=== PATIENT | female | born 1960 | race Caucasian/White ===

== ENCOUNTER 2017-06-06 08:07 | Emergency (ER) | payer OTHER ==
[2017-06-06 08:19] VITALS: BP 137/63; PULSE 100; TEMP 98.5; BMI 33.3
--- NOTE | 2017-06-06 09:17 | PDOC ---
History of Present Illness - General Chief Complaint: Cold Symptoms Stated Complaint: HEADACHE Time Seen by Provider: 06/06/17 08:58 History Source: Patient Exam Limitations: No Limitations - History of Present Illness Initial Comments: 06/06/17 09:13 Patient is here with complaints of fevers, headache body aches sore throat pain moist nonproductive cough. Patient states onset was 2 days ago has been using Tylenol with minimal resolved. Timing/Duration: reports: getting worse Severity: reports: mild, moderate Associated Symptoms: reports: cough, facial pain, fever/chills, headache, nasal congestion, sore throat, wheezing Past History - Travel Traveled outside of the country in the last 30 days: No Close contact w/someone who was outside of country & ill: No - Past Medical History Allergies/Adverse Reactions: Allergies Allergy/AdvReac Type Severity Reaction Status Date / Time No Known Allergies Allergy Verified 06/06/17 08:14 Home Medications: Ambulatory Orders Ibuprofen 400 mg PO Q6H PRN #30 tablet 06/06/17 Oseltamivir Phosphate [Tamiflu -] 75 mg PO BID #10 capsule 06/06/17 COPD: No Thyroid Disease: Yes - Suicide/Smoking/Psychosocial Hx Smoking History: Never smoked Have you smoked in the past 12 months: No Information on smoking cessation initiated: No Hx Alcohol Use: No Drug/Substance Use Hx: No Substance Use Type: None Review of Systems - Review of Systems Able to Perform ROS?: Yes Is the patient limited Kazakh proficient: Yes Constitutional: Yes: Symptoms Reported, See HPI, Chills, Fever, Loss of Appetite , Malaise HEENTM: Yes: Symptoms Reported, Nose Congestion, Throat Pain Respiratory: Yes: Symptoms reported, See HPI, Cough. No: Wheezing Musculoskeletal: Yes: Symptoms Reported Integumentary: Yes: Symptoms Reported, See HPI Neurological: Yes: Symptoms reported, See HPI, Headache All Other Systems: Reviewed and Negative *Physical Exam - Vital Signs Last Vital Signs Temp Pulse Resp BP Pulse Ox 98.5 F 100 H 18 137/63 100 06/06/17 08:15 06/06/17 08:15 06/06/17 08:15 06/06/17 08:15 06/06/17 08:15 - Physical Exam General Appearance: Yes: Nourished, Appropriately Dressed, Apparent Distress, Moderate Distress HEENT: positive: TMs Normal (congested but landmarks easily visualized), Tonsillar Exudate, Rhinorrhea, Sinus Tenderness Neck: positive: Tender, Supple, Lymphadenopathy (R), Lymphadenopathy (L) Respiratory/Chest: positive: Lungs Clear (course but clear) Cardiovascular: positive: Regular Rate Musculoskeletal: positive: Normal Inspection Extremity: positive: Normal Capillary Refill, Normal Inspection Integumentary: positive: Dry, Warm, Pale 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 We'll treat with Tamiflu *DC/Admit/Observation/Transfer Diagnosis at time of Disposition: Upper respiratory tract infection Qualifiers: URI type: unspecified URI Qualified Code(s): J06.9 - Acute upper respiratory infection, unspecified - Discharge Dispostion Disposition: HOME Condition at time of disposition: Stable Admit: No - Referrals Referrals: Holly Fiore [Primary Care Provider] - - Patient Instructions Printed Discharge Instructions: DI for Viral Upper Respiratory Infection -- Adult Additional Instructions: Rest, drink lots of fluids: Teas, water, soups, Pedialyte Saltwater gargles Steamy showers/seem to face break up mucus Old-fashioned treatments help! Avoid contact with others until fevers and cough resolved as this is very contagious Lots of handwashing and good hygiene Continue [id number] medications for symptomatic relief Tylenol or Motrin for fever and pain Take all of Tamiflu as directed: 1 tab every 12 hours for 5 days Followup with private physician in one to 2 days as needed or if worsening Return to emergency department for worsened symptoms, fevers, dehydration Influenza takes between 5 and 7 days for resolution To not participate in any activity, work, or school until fevers and cough are gone for at least one day - Post Discharge Activity Forms/Work/School Notes: Back to Work
== END 2017-06-06 09:26 | disposition home or self-care (01) ==
LOC: JERFT 08:07
DX: J06.9 Acute upper respiratory infection, unspecified (principal)
CPT/HCPCS: 99281-25

== ENCOUNTER 2018-10-11 08:01 | Day surgery (SDC) | payer OTHER ==
[2018-10-10 14:52] VITALS: BMI 36.8
[2018-10-11 09:47] VITALS: TEMP 97.9
[2018-10-11 10:35] VITALS: BP 164/79; PULSE 76
--- NOTE | 2018-10-12 16:44 | PATH ---
Surgical Pathology Report Patient Name: APOORVA MALCOLM [facility]. Rec. #: [id number] /Age/Gender: 1960 (Age: 57) / F Account: [id number] Location: [facility]-ENDOSCOPY Taken: 10/11/2018 Received: 10/11/2018 Reported: 10/12/2018 Physicians: Mina Rinaldi D.O. Specimen(s) Received PROXIMAL TRANSVERSE COLON POLYP BX Clinical History Chronic constipation, screening Postoperative diagnosis: Colon polyp, hemorrhoids Final Diagnosis PROXIMAL TRANSVERSE COLON, POLYP, BIOPSY: TUBULAR ADENOMA. Electronically Signed Adalgisa Singh M.D. Gross Description Received in formalin, labeled "proximal transverse colon polyp biopsy" are 2 marcus, irregular portions of soft tissue measuring 0.2 and 0.4 cm. in greatest dimension. The specimens are submitted in toto in one cassette. /10/11/201810/11/2018
== END 2018-10-11 10:35 | disposition home or self-care (01) ==
LOC: JASU-ENDO 08:01
PROVIDERS: ATTEND Internal Medicine Gastroenterology
PROC: 0DBL8ZX Excision of Transverse Colon, Via Natural or Artificial Opening Endoscopic, Diagnostic (ICD-10-PCS; principal; 2018-10-11 09:00)
DX: Z12.11 Encounter for screening for malignant neoplasm of colon (principal); K64.8 Other hemorrhoids; D12.3 Benign neoplasm of transverse colon; I10 Essential (primary) hypertension
CPT/HCPCS: 88305-TC

== ENCOUNTER 2018-10-30 09:02 | Day surgery (SDC) | payer OTHER ==
[2018-10-29 15:11] VITALS: BMI 37.2
[2018-10-30 10:07] VITALS: TEMP 97.8
[2018-10-30 10:46] VITALS: BP 144/76; PULSE 74
--- NOTE | 2018-10-31 18:09 | PATH ---
Surgical Pathology Report Patient Name: APOORVA MALCOLM [facility]. Rec. #: [id number] /Age/Gender: 1960 (Age: 57) / F Account: [id number] Location: [facility]-ENDOSCOPY Taken: 10/30/2018 Received: 10/30/2018 Reported: 10/31/2018 Physicians: Mina Rinaldi D.O. Specimen(s) Received A: 2ND PORTION DUODENUM AND BULB B: ANTRAL EROSION C: ANGULARIS AND BODY D: GE JUNCTION Clinical History Dyspepsia Postoperative diagnosis: Hiatal hernia, gastritis Final Diagnosis A. DUODENUM, SECOND PORTION AND BULB, BIOPSY: DUODENAL MUCOSA WITHOUT SIGNIFICANT PATHOLOGIC FINDINGS. B. STOMACH, ANTRAL EROSION, BIOPSY: GASTRIC ANTRAL MUCOSA WITH MILD CHRONIC GASTRITIS. IMMUNOHISTOCHEMICAL STAIN FOR H. PYLORI IS NEGATIVE. C. STOMACH, ANGULARIS AND BODY, BIOPSY: GASTRIC MUCOSA WITH MILD CHRONIC GASTRITIS. IMMUNOHISTOCHEMICAL STAIN FOR H. PYLORI IS NEGATIVE. D. GE JUNCTION, BIOPSY: SQUAMOCOLUMNAR MUCOSA WITH MILD CHRONIC INFLAMMATION AND CHANGES OF MODERATE TO SEVERE REFLUX ESOPHAGITIS. NO INTESTINAL METAPLASIA OR DYSPLASIA IDENTIFIED. Electronically Signed Taylor Barnes M.D. Gross Description A. Received in formalin, labeled "second portion and bulb of duodenum " are 3 marcus, irregular portions of soft tissue measuring 0.1-0.3 cm. in greatest dimension. The specimens are submitted in toto in one cassette. B. Received in formalin, labeled "antral erosion BX " is a marcus, irregular portion of soft tissue measuring 0.3 cm. in greatest dimension. The specimen is submitted in toto in one cassette. C. Received in formalin, labeled "angularis and body BX" is a marcus, irregular portion of soft tissue measuring 0.5 cm. in greatest dimension. The specimen is submitted in toto in one cassette. D. Received in formalin, labeled "GE junction" are 2 marcus, irregular portions of soft tissue measuring 0.1 and 0.4 cm. in greatest dimension. The specimens are submitted in toto in one cassette. MLSZ/10/30/2018 sanml/10/30/2018
== END 2018-10-30 10:53 | disposition home or self-care (01) ==
LOC: JASU-ENDO 09:02
PROVIDERS: ATTEND Internal Medicine Gastroenterology
PROC: 0DB68ZX Excision of Stomach, Via Natural or Artificial Opening Endoscopic, Diagnostic (ICD-10-PCS; 2018-10-30)
PROC: 0DB48ZX Excision of Esophagogastric Junction, Via Natural or Artificial Opening Endoscopic, Diagnostic (ICD-10-PCS; principal; 2018-10-30 10:00)
DX: K44.9 Diaphragmatic hernia without obstruction or gangrene (principal)
CPT/HCPCS: 88305-TC; 88342-TC

== ENCOUNTER 2023-04-24 05:18 | Day surgery (SDC) | payer BC ==
[2023-04-21 11:04] VITALS: BMI 33.1
[2023-04-24 07:26] VITALS: TEMP 98
[2023-04-24 09:25] VITALS: BP 114/45; PULSE 63; RESP 18
== END 2023-04-24 09:30 | disposition home or self-care (01) ==
LOC: JASU-ENDO 05:18
PROVIDERS: ATTEND Internal Medicine Gastroenterology
PROC: 0DJD8ZZ Inspection of Lower Intestinal Tract, Via Natural or Artificial Opening Endoscopic (ICD-10-PCS; principal; 2023-04-24 08:00)
DX: Z12.11 Encounter for screening for malignant neoplasm of colon (principal); K63.89 Other specified diseases of intestine; K64.8 Other hemorrhoids; Z86.010 Personal history of colon polyps

== ENCOUNTER 2024-04-02 04:32 | Day surgery (SDC) | payer BC ==
[2024-04-01 10:22] VITALS: BMI 32.5
[2024-04-02 13:15] VITALS: TEMP 98.2
[2024-04-02 16:22] VITALS: BP 133/65; PULSE 70; RESP 18
== END 2024-04-02 13:23 | disposition home or self-care (01) ==
LOC: JASU-ENDO 04:32
PROVIDERS: ATTEND Internal Medicine Gastroenterology
PROC: 0DB68ZX Excision of Stomach, Via Natural or Artificial Opening Endoscopic, Diagnostic (ICD-10-PCS; principal; 2024-04-02 11:30)
DX: K29.50 Unspecified chronic gastritis without bleeding (principal)
CPT/HCPCS: 82962; 88305-TC; 88342-TC